=== PATIENT | male | born 1990 | race Caucasian/White ===

== ENCOUNTER 2019-03-13 05:18 | Emergency (ER) | payer SELFPAY ==
[2019-03-13 06:21] LABS: #Basophils 0.1 thou/uL (0.0-0.2); #Eosinphils 0.1 thou/uL (0.0-0.7); #Lymphocytes 2.6 thou/uL (1.20-3.40); #Monocytes 0.9 thou/uL (0.11-0.59); #Neutrophils 5.8 thou/uL (1.40-6.50); %Basophils 1.1 % (0.0-1.0); %Eosinophils 0.6 % (0.0-10.0); %Lymphocytes 27.6 % (21.0-51.0); %Monocytes 9.8 % (0.0-10.0); %Neutrophils 60.9 % (42.0-75.0); Hemoglobin 15.8 g/dL (14.0-18.0); Mean Corpuscular HGB CONC 34.8 g/dL (32.0-36.0); Mean Corpuscular Hemoglobin 31.9 pg (27.0-31.0); Mean Corpuscular Volume 91.6 fL (78.0-98.0); Mean Platelet Volume 7.7 fL (7.4-10.4); Platelet Count 234 thou/uL (130-400); RBC Distribution Width 13.4 % (11.5-14.5); Red Blood Cell (RBC) Count 4.96 mill/uL (4.70-6.10); White Blood Cell (WBC) Count 9.4 thou/uL (4.8-10.8)
[2019-03-13 06:27] LABS: INR-International Normal Ratio 0.9; PTT 28.7 SEC (22.9-36.1); Prothrombin Time 12.5 SEC (12.0-14.7)
[2019-03-13 06:41] LABS: Acetaminophen Less than 6.0 mcg/mL (10.0-30.0); Alcohol Less than 10 mg/dL (Less than 10); Salicylate Less than 8.0 mg/dL (15.0-30.0)
[2019-03-13 06:43] LABS: ALT (SGPT) 17 U/L (8-55); AST (SGOT) 16 U/L (5-34); Albumin 4.8 g/dL (3.5-5.0); Alkaline Phosphatase 89 U/L (40-110); Anion Gap 14 mmol/L (10-20); BUN (Urea Nitrogen) 17 mg/dL (8.9-20.6); Bilirubin, Total 0.9 mg/dL (0.2-1.2); Calc. Creatinine Clearance 0 mL/min (70-130); Calcium 9.5 mg/dL (7.8-10.44); Carbon Dioxide 24 mmol/L (22-29); Chloride 103 mmol/L (98-107); Estimated GFR-MDRD Greater than 90; Globulin 2.8 g/dL (2.4-3.5); Glucose 112 mg/dL (70-105); Potassium 3.5 mmol/L (3.5-5.1); Protein, Total 7.6 g/dL (6.0-8.3); Sodium 137 mmol/L (136-145)
== END 2019-03-13 06:51 | disposition home or self-care (01) ==
LOC: ERS 05:18
DX: F10.10 Alcohol abuse, uncomplicated (principal); F11.10 Opioid abuse, uncomplicated; F17.210 Nicotine dependence, cigarettes, uncomplicated; F41.9 Anxiety disorder, unspecified
CPT/HCPCS: 36415; 80053; 80307; 85025; 85610; 85730; 99283

== ENCOUNTER 2019-03-18 19:00 | Emergency (ER) | payer SELFPAY ==
[2019-03-18] MEDS ORDERED: Lorazepam 2 MG/ML VIAL ONE (19:47)
[2019-03-18 19:53] LABS: #Basophils 0.1 thou/uL (0.0-0.2); #Monocytes 1.2 thou/uL (0.11-0.59); #Neutrophils 8.4 thou/uL (1.40-6.50); %Basophils 0.8 % (0.0-1.0); %Eosinophils 0.4 % (0.0-10.0); %Monocytes 10.2 % (0.0-10.0); %Neutrophils 71.6 % (42.0-75.0); Hemoglobin 16.3 g/dL (14.0-18.0); Mean Corpuscular HGB CONC 35.3 g/dL (32.0-36.0); Mean Corpuscular Hemoglobin 32.3 pg (27.0-31.0); Mean Corpuscular Volume 91.5 fL (78.0-98.0); Mean Platelet Volume 7.2 fL (7.4-10.4); Platelet Count 271 thou/uL (130-400); RBC Distribution Width 13.6 % (11.5-14.5); Red Blood Cell (RBC) Count 5.06 mill/uL (4.70-6.10); White Blood Cell (WBC) Count 11.7 thou/uL (4.8-10.8)
[2019-03-18] MEDS ORDERED: Multivitamins, Adult 10 ML, Thiamine HCl 100 MG, Folic Acid 1 MG in Dextrose 5 %-0.45 %... IV SCH (20:00)
[2019-03-18 20:11] LABS: ALT (SGPT) 16 U/L (8-55); AST (SGOT) 15 U/L (5-34); Alkaline Phosphatase 91 U/L (40-110); Anion Gap 14 mmol/L (10-20); BUN (Urea Nitrogen) 16 mg/dL (8.9-20.6); Bilirubin, Total 0.5 mg/dL (0.2-1.2); CK (CPK) 118 U/L (30-200); Calc. Creatinine Clearance 0 mL/min (70-130); Calcium 10.1 mg/dL (7.8-10.44); Carbon Dioxide 24 mmol/L (22-29); Chloride 103 mmol/L (98-107); Estimated GFR-MDRD Greater than 90; Globulin 2.9 g/dL (2.4-3.5); Glucose 95 mg/dL (70-105); Potassium 3.9 mmol/L (3.5-5.1); Protein, Total 7.9 g/dL (6.0-8.3); Sodium 137 mmol/L (136-145)
[2019-03-18 20:12] LABS: Acetaminophen Less than 6.0 mcg/mL (10.0-30.0); Alcohol Less than 10 mg/dL (Less than 10); Salicylate Less than 8.0 mg/dL (15.0-30.0)
[2019-03-18 21:03] LABS: Bilirubin Negative (Negative); Blood, Urine Negative (Negative); Clarity Clear (Clear); Glucose, Urine (Dipstick) Normal (Negative); Leukocyte Negative Leu/uL (Negative); Nitrite Negative (Negative); Protein, Urine (Dipstick) Negative (Neg-Trace); Urobilinogen Normal mg/dL (Less than 2)
[2019-03-18 21:14] LABS: Amphetamine Not Detected (NotDetected); Barbiturates Screen Not Detected (NotDetected); Benzodiazepine Screen Not Detected (NotDetected); Cocaine Metabolite Screen Not Detected (NotDetected); Medtox Control Line Valid? VALID (VALID); Medtox Reader # READER 4; Methadone Not Detected (NotDetected); Methamphetamine Not Detected (NotDetected); Opiate Screen Not Detected (NotDetected); Oxycodone Screen Not Detected (NotDetected); Phencyclidine (PCP) Not Detected (NotDetected); THC/Cannabinoid Screen Detected (NotDetected); Tricyclic Screen Not Detected (NotDetected)
== END 2019-03-19 01:07 | disposition home or self-care (01) ==
LOC: ERS 19:00
DX: F10.239 Alcohol dependence with withdrawal, unspecified (principal); F41.9 Anxiety disorder, unspecified; F43.10 Post-traumatic stress disorder, unspecified; F17.210 Nicotine dependence, cigarettes, uncomplicated
CPT/HCPCS: 80053; 80306; 80307; 81003; 82550; 84443; 85025; 93005; 96365; 96366; 96375; J2060; J3411; J7042

== ENCOUNTER 2019-08-14 03:46 | Emergency (ER) | payer SELFPAY | END 2019-08-14 05:35 | disposition home or self-care (01) | LOC: ERS 03:46 | DX: F10.129 Alcohol abuse with intoxication, unspecified (principal); F43.10 Post-traumatic stress disorder, unspecified; F41.9 Anxiety disorder, unspecified; F17.210 Nicotine dependence, cigarettes, uncomplicated | CPT/HCPCS: 99284 ==

== ENCOUNTER 2019-12-14 19:41 | Emergency (ER) | payer OTHER, SELFPAY ==
[2019-12-14] MEDS ORDERED: Lorazepam 2 MG/ML VIAL ONE ×2 (20:25→22:18)
[2019-12-14] MEDS ORDERED: chlordiazePOXIDE HCl 25 MG CAP ONE (20:25)
[2019-12-14] MEDS ORDERED: Lidocaine Viscous Sol 2% 15 ml UD Cup ONE (20:26)
[2019-12-14] MEDS ORDERED: Mag-Al 1200 mg/1200 mg/30 ML UDCUP ONE (20:26)
[2019-12-14] MEDS ORDERED: Ondansetron PF 4 MG/2 ML Vial ONE (20:26)
[2019-12-14] MEDS ORDERED: Multivitamins, Adult 10 ML, Thiamine HCl 100 MG, Folic Acid 1 MG in Dextrose 5 %-0.45 %... IV SCH (20:30)
--- NOTE | 2019-12-14 20:35 | RAD ---
EXAM: CHEST ONE VIEW HISTORY: Abdominal pain and vomiting. COMPARISON: None FINDINGS: The cardiac silhouette and pulmonary vasculature is within normal limits. The lungs are clear. The os seous structures are intact. IMPRESSION: No acute cardiopulmonary process.
[2019-12-14 20:45] LABS: #Basophils 0.1 thou/uL (0.0-0.2); #Eosinphils 0.2 thou/uL (0.0-0.7); #Lymphocytes 2.9 thou/uL (1.20-3.40); #Neutrophils 5.9 thou/uL (1.40-6.50); %Basophils 0.8 % (0.0-1.0); %Eosinophils 1.8 % (0.0-10.0); %Lymphocytes 28.9 % (21.0-51.0); %Monocytes 10.2 % (0.0-10.0); %Neutrophils 58.3 % (42.0-75.0); Hemoglobin 15.2 g/dL (14.0-18.0); Mean Corpuscular HGB CONC 35.3 g/dL (32.0-36.0); Mean Corpuscular Volume 93.4 fL (78.0-98.0); Mean Platelet Volume 7.5 fL (7.4-10.4); Platelet Count 311 thou/uL (130-400); RBC Distribution Width 12.4 % (11.5-14.5); Red Blood Cell (RBC) Count 4.62 mill/uL (4.70-6.10); White Blood Cell (WBC) Count 10.2 thou/uL (4.8-10.8)
[2019-12-14] MEDS ORDERED: Pantoprazole 80 MG in Sodium Chloride 0.9% 100 ML IVPB SCH (20:45)
[2019-12-14 20:51] LABS: INR-International Normal Ratio 0.9; PTT 30.2 sec (22.9-36.1); Prothrombin Time 11.9 sec (12.0-14.7)
[2019-12-14 21:06] LABS: Bilirubin Negative (Negative); Blood, Urine Negative (Negative); Clarity Turbid (Clear); Glucose, Urine (Dipstick) Normal (Negative); Ketone, Urine Negative (Negative); Leukocyte Negative Leu/uL (Negative); Nitrite Negative (Negative); Protein, Urine (Dipstick) 20 mg/dL (Neg-Trace); Specific Gravity, Urine 1.029 (1.002-1.036); Urobilinogen Normal mg/dL (Less than 2); pH, Urine 7.5 (5.0-9.0)
[2019-12-14 21:06] LABS: Acetaminophen Less than 6.0 mcg/mL (10.0-30.0); Alcohol Less than 10 mg/dL (Less than 10); CK (CPK) 147 U/L (30-200); Magnesium 2.2 mg/dL (1.6-2.6); Salicylate Less than 8.0 mg/dL (15.0-30.0)
[2019-12-14 21:07] LABS: ALT (SGPT) 229 U/L (8-55); AST (SGOT) 123 U/L (5-34); Albumin 4.7 g/dL (3.5-5.0); Alkaline Phosphatase 115 U/L (40-110); Anion Gap 17 mmol/L (10-20); BUN (Urea Nitrogen) 19 mg/dL (8.9-20.6); Bilirubin, Total 0.2 mg/dL (0.2-1.2); Calc. Creatinine Clearance 0 mL/min (70-130); Calcium 9.9 mg/dL (7.8-10.44); Carbon Dioxide 26 mmol/L (22-29); Chloride 101 mmol/L (98-107); Estimated GFR-MDRD 66; Globulin 3.4 g/dL (2.4-3.5); Glucose 112 mg/dL (70-105); Lipase 21 U/L (8-78); Potassium 4.2 mmol/L (3.5-5.1); Protein, Total 8.1 g/dL (6.0-8.3); Sodium 140 mmol/L (136-145)
[2019-12-14 21:23] LABS: Amphetamine Not Detected (NotDetected); Barbiturates Screen Not Detected (NotDetected); Benzodiazepine Screen Detected (NotDetected); Cocaine Metabolite Screen Not Detected (NotDetected); Medtox Control Line Valid? VALID (VALID); Medtox Reader # READER 1; Methadone Not Detected (NotDetected); Methamphetamine Not Detected (NotDetected); Opiate Screen Not Detected (NotDetected); Oxycodone Screen Not Detected (NotDetected); Phencyclidine (PCP) Not Detected (NotDetected); THC/Cannabinoid Screen Not Detected (NotDetected); Tricyclic Screen Detected (NotDetected)
== END 2019-12-14 23:42 | disposition home or self-care (01) ==
LOC: ERS 19:41
DX: K29.20 Alcoholic gastritis without bleeding (principal); F10.239 Alcohol dependence with withdrawal, unspecified; F41.9 Anxiety disorder, unspecified; F43.10 Post-traumatic stress disorder, unspecified; F31.9 Bipolar disorder, unspecified; F17.210 Nicotine dependence, cigarettes, uncomplicated; Z79.899 Other long term (current) drug therapy
CPT/HCPCS: 71045; 80053; 80306; 80307; 81003; 82550; 83690; 83735; 85025; 85610; 85730; 96361; 96365; 96366; 96368; 96375; 96376; C9113; J2060; J2405; J3411; J3490; J7042

== ENCOUNTER 2022-06-26 13:34 | Outpatient (CLI) | payer OTHER | END 2022-06-26 13:35 | disposition home or self-care (01) | LOC: RAD 13:34 | PROVIDERS: ATTEND Family Medicine | DX: R00.0 Tachycardia, unspecified (principal); F41.0 Panic disorder [episodic paroxysmal anxiety] | CPT/HCPCS: 71046 ==

== ENCOUNTER 2022-10-02 10:49 | Emergency (ER) | payer OTHER ==
[2022-10-02 12:21] LABS: ALT (SGPT) 43 U/L (8-55); AST (SGOT) 15 U/L (5-34); Albumin 3.6 g/dL (3.5-5.0); Alkaline Phosphatase 65 U/L (40-110); Anion Gap 13 mmol/L (10-20); BUN (Urea Nitrogen) 18 mg/dL (8.9-20.6); Bilirubin, Total 0.2 mg/dL (0.2-1.2); Calc. Creatinine Clearance 0 mL/min (70-130); Calcium 8.3 mg/dL (7.8-10.44); Carbon Dioxide 24 mmol/L (22-29); Chloride 100 mmol/L (98-107); Estimated GFR 108; Globulin 2.3 g/dL (2.4-3.5); Glucose 139 mg/dL (70-105); Lipase 4 U/L (8-78); Potassium 3.7 mmol/L (3.5-5.1); Protein, Total 5.9 g/dL (6.0-8.3); Sodium 133 mmol/L (136-145)
[2022-10-02] MEDS ORDERED: Dicyclomine 20 MG/2 ML VIAL ONE (12:24)
[2022-10-02] MEDS ORDERED: Ondansetron PF 4 MG/2 ML Vial ONE (12:24)
[2022-10-02] MEDS ORDERED: Ketorolac Tromethamine 30 MG/ML VIAL ONE (12:24)
[2022-10-02 12:27] LABS: #Basophils 0.1 thou/uL (0.0-0.2); #Eosinphils 0.1 thou/uL (0.0-0.7); #Monocytes 1.5 thou/uL (0.11-0.59); %Basophils 0.5 % (0.0-1.0); %Eosinophils 0.5 % (0.0-10.0); %Monocytes 11.5 % (0.0-10.0); %Neutrophils 61.7 % (42.0-75.0); Hemoglobin 11.3 g/dL (14.0-18.0); Mean Corpuscular HGB CONC 31.4 g/dL (32.0-36.0); Mean Corpuscular Hemoglobin 26.9 pg (27.0-31.0); Mean Corpuscular Volume 85.7 fl (78.0-98.0); Mean Platelet Volume 9.8 fL (7.4-10.4); Platelet Count 384 10x3/uL (130-400); RBC Distribution Width 14.3 % (11.5-14.5); White Blood Cell (WBC) Count 12.9 10x3/uL (4.8-10.8)
[2022-10-02 13:33] LABS: Bilirubin Negative (Negative); Blood, Urine Negative (Negative); Clarity Clear (Clear); Glucose, Urine (Dipstick) Normal (Negative); Ketone, Urine Negative (Negative); Leukocyte Negative Leu/uL (Negative); Nitrite Negative (Negative); Protein, Urine (Dipstick) 20 mg/dL (Neg-Trace); Specific Gravity, Urine 1.034 (1.002-1.036)
== END 2022-10-02 15:10 | disposition home or self-care (01) ==
LOC: ERS 10:49
DX: A08.4 Viral intestinal infection, unspecified (principal); R00.0 Tachycardia, unspecified; D72.829 Elevated white blood cell count, unspecified; K21.9 Gastro-esophageal reflux disease without esophagitis; F17.210 Nicotine dependence, cigarettes, uncomplicated
CPT/HCPCS: 36415; 36416; 80053; 81003; 83690; 85025; 93005; 96361; 96372; 96374; 96375; J1885; J2405